=== PATIENT | male | born 1965 | race Two or more races ===

== ENCOUNTER 2021-11-06 11:05 | Outpatient (CLI) | payer OTHER | END 2021-11-06 11:50 | disposition home or self-care (01) | LOC: ASH CLINIC 11:05 | PROVIDERS: ATTEND General Practice | DX: U07.1 COVID-19 (principal) ==

== ENCOUNTER 2022-03-29 06:54 | Outpatient (CLI) | payer OTHER | END 2022-03-29 06:55 | disposition home or self-care (01) | LOC: LAB 06:54 | PROVIDERS: ATTEND Internal Medicine | DX: Z13.1 Encounter for screening for diabetes mellitus (principal); Z13.220 Encounter for screening for lipoid disorders; Z13.29 Encounter for screening for other suspected endocrine disorder; E55.9 Vitamin D deficiency, unspecified ==

== ENCOUNTER 2022-03-30 07:41 | Outpatient (CLI) | payer OTHER | END 2022-03-30 07:47 | disposition home or self-care (01) | LOC: MRI 07:41 | PROVIDERS: ATTEND Internal Medicine | DX: R51.9 Headache, unspecified (principal); R42 Dizziness and giddiness | CPT/HCPCS: 70551 ==

== ENCOUNTER 2023-02-28 14:09 | Outpatient (CLI) | payer OTHER ==
[~2023-02-28 14:09] MED LIST: DICLOFENAC POTA50 MG PO; METAXALONE800 MG PO
== END 2023-02-28 14:23 | disposition home or self-care (01) ==
LOC: RAD 14:09
PROVIDERS: ATTEND Physical Medicine & Rehabilitation
DX: M54.50 Low back pain, unspecified (principal); M53.3 Sacrococcygeal disorders, not elsewhere classified

== ENCOUNTER 2023-04-27 13:44 | Outpatient (CLI) | payer OTHER ==
[~2023-04-27 13:44] MED LIST changes: +ETODOLAC500 MG PO; +NORFLEX100MG PO
== END 2023-04-27 13:57 | disposition home or self-care (01) ==
LOC: MRI 13:44
PROVIDERS: ATTEND Physical Medicine & Rehabilitation
DX: M54.51 Vertebrogenic low back pain (principal)
CPT/HCPCS: 72148

== ENCOUNTER 2023-06-08 13:40 | Outpatient (CLI) | payer OTHER ==
[~2023-06-08 13:40] MED LIST changes: +TRAM1TAB98 PO
== END 2023-06-08 13:43 | disposition home or self-care (01) ==
LOC: RAD 13:40
DX: M25.552 Pain in left hip (principal); G89.4 Chronic pain syndrome